=== PATIENT | male | born 1970 | race Caucasian/White ===

== ENCOUNTER 2021-04-23 08:29 | Emergency (ER) | payer SELFPAY ==
[~2021-04-23] VITALS: Ht 185.4 cm; Wt 72.1 kg
[2021-04-23 08:34] VITALS: BP 127/89
[2021-04-23] MEDS ORDERED: hydrOXyzine 50MG TABLET ONE (08:49)
--- NOTE | 2021-04-23 08:54 | NUR ---
FIRST CONTACT WITH PT: SI WITH NO PLAN, HX ETOH AND METH. PT ADMITS TO USING METH AND DRINKING YESTERDAY. PT STATES HE KEEPS PUTTING HIMSELF IN "RISKY SITUATIONS". PT TO ROOM WITH STEADY GAIT. PT OBSERVED TO BE ANXIOUS AND FIDGITY IN BED BY THIS RN. BOGDAN HOWE EVALUATED BEDSIDE. PT MEDICATED PER EMAR. SAFETY PRECAUTIONS IN PLACE AND SITTER AT BEDSIDE.
--- NOTE | 2021-04-23 08:57 | NUR ---
PT BELONGINGS COLLECTED, CATALOGED ON FORMED, PT SIGNED TO AGREEMENT, AND BELONGINGS PLACED IN LOCKER FOR SAFE KEEPING.
--- NOTE | 2021-04-23 08:58 | NUR ---
PTS PADMAJA RUSSELL [phone]. PER PT OKAY TO GIVE INFORMATION TO.
[2021-04-23 09:11] LABS: BASOPHILS % (AUTO) 1 % (0-1); EOSINOPHILS % (AUTO) 1 % (1-7); LYMPHOCYTES % (AUTO) 21 % (22-44); MEAN CORPUSCULAR HEMOGLOBIN 32.4 pg (27.5-34.5); MEAN CORPUSCULAR HGB CONC 34.9 g/dL (33.2-36.2); MONOCYTES % (AUTO) 12 % (2-9); NEUTROPHILS % (AUTO) 65 % (42-75); PLATELET COUNT 300 x10^3/uL (130-400); RED CELL DISTRIBUTION WIDTH 13.7 % (9.4-14.8)
[2021-04-23 09:22] LABS: ANION GAP 7 mmol/L (5-15); CALCIUM 9.5 mg/dL (8.5-10.1); CHLORIDE 109 mmol/L (98-107); SALICYLATE LEVEL 2.4 mg/dL (2.8-20.0)
[2021-04-23 09:25] LABS: CREATININE 0.81 mg/dL (0.7-1.3)
[2021-04-23 09:30] LABS: AMPHETAMINE SCREEN, URINE Positive (Negative); BARBITURATE SCREEN, URINE Negative (Negative); BENZODIAZEPINE SCREEN, URINE Negative (Negative); CANNABINOID SCREEN, URINE Positive (Negative); COCAINE SCREEN, URINE Negative (Negative); METHADONE SCREEN, URINE Negative (Negative); OPIATE SCREEN, URINE Negative (Negative)
--- NOTE | 2021-04-23 10:10 | NUR ---
PT RESTING IN BED WITH EYES CLOSED. RESPIRATIONS EVEN AND UNLABORED.
--- NOTE | 2021-04-23 11:09 | NUR ---
Patient given discharge instructions and they have confirmed that they understand the instructions. Patient ambulatory with steady gait. NAD, all questions answered appropriately, denies additional needs at this time. No personal belongings left in room after discharge, BELONGINGS RETURENED TO PT.
== END 2021-04-23 11:10 | disposition home or self-care (01) ==
LOC: ED 09:03
DX: F10.220 Alcohol dependence with intoxication, uncomplicated (principal); F15.129 Other stimulant abuse with intoxication, unspecified; Y90.0 Blood alcohol level of less than 20 mg/100 ml
CPT/HCPCS: 36415; 80048; 80299; 80307; 80320; 80329; 82040; 85025; 99283; Q0177; G0480